=== PATIENT | male | born 1980 | race Caucasian/White ===

== ENCOUNTER 2021-07-29 09:06 | Emergency (ER) | payer OTHER, SELFPAY ==
[2021-07-29] VITALS (10 sets, daily range): BP systolic 127–141; BP diastolic 78–85; PULSE 77–98; RESP 18; TEMP 36.6; O2SAT 98–100; BMI 25.0
--- NOTE | 2021-07-29 09:21 | PC.NURSE ---
States that when he vomited he first threw up the soup he had just eaten and it was followed by a moderate amount of bright red blood
[2021-07-29 09:45] LABS: Add Manual Diff / Slide Review NO; Basophils Absolute Auto 100 /uL (0-100); Basophils Percent Auto 0.8 % (0-2); Eosinophils Absolute Auto 200 /uL (0-450); Eosinophils Percent Auto 2.6 % (2-4); Hematocrit 44.9 % (41-53); Hemoglobin 15.4 g/dL (13.5-17.5); Lymphocytes Absolute Auto 1900 /uL (1100-4500); Lymphocytes Percent Auto 31.2 % (25-40); Mean Corpuscular HGB Conc 34.3 % (30-36); Mean Corpuscular Hemoglobin 30.8 PG (26-34); Mean Corpuscular Volume 89.7 fL (80-100); Monocytes Absolute Auto 600 /uL (0-900); Monocytes Percent Auto 9.9 % (3-14); Neutrophils Absolute Auto 3500 /uL (1500-7000); Neutrophils Percent Auto 55.5 % (50-75); Platelet Count 214 X10^3/uL (150-400); Red Cell Distribution Width 13.3 % (11.6-14.8); White Blood Cell Count 6.3 X10^3/uL (4.5-11.0)
[2021-07-29 09:55] LABS: Alanine Aminotransferase 28 IU/L (<50); Albumin 4.5 g/dL (3.5-5.0); Albumin Globulin Ratio 1.4 (1.0-2.8); Alkaline Phosphatase 76 U/L (38-126); Aspartate Aminotransferase 30 IU/L (17-59); BUN Creatinine Ratio 20.2 (6-22); Bilirubin Total 0.4 mg/dL (0.2-1.3); Blood Urea Nitrogen 18 mg/dL (9-20); Calcium 9.2 mg/dL (8.4-10.2); Carbon Dioxide 28 mmol/L (22-32); Chloride 106 mmol/L (98-107); Estimated Glomerular Filt Rate > 60 mL/min (>60); Globulin 3.2 g/dL (1.7-4.1); Glucose 107 mg/dL (70-100); HEMOLYSIS < 15 (0-50); Potassium 4.6 mmol/L (3.4-5.1); Sodium 140 mmol/L (137-145); Total Protein 7.7 g/dL (6.3-8.2)
--- NOTE | 2021-07-29 10:25 | ED.GIBLEED ---
HPI - GI Bleed General Chief complaint: GI Bleed Stated complaint: Vomiting blood Time Seen by Provider: 07/29/21 09:58 Source: patient Mode of arrival: Ambulatory History of Present Illness HPI Narrative: 41-year-old gentleman with no significant medical history reports that he woke up this morning had some soup for breakfast that ?did not sit well? followed by some emesis the 1st of which was the soupy had consumed and then he describes fresh blood in with the emesis. He describes no black or coffee-ground findings. He has not had any black stools recently he has never had bleeding from his stomach before. He states that he is somewhat dizzy right now however he is not orthostatic. When questioned regarding his alcohol use he states that he has usually around 3 beers a day and occasionally more with more being last night. He says that he does not have any difficulty if he does not have any alcohol and he is successfully had periods of no drinking in the past. He states that he has had chronic diarrhea since moving to the area 7 years agoand attributes this to something in the water is typically clears when he is out of town. He describes no chest pain, palpitations, headache he has no abdominal pain. Related Data Previous Rx's Medication Instructions Recorded omeprazole 40 mg capsule,delayed 40 mg PO DAILY #14 cap 07/29/21 release Allergies Allergy/AdvReac Type Severity Reaction Status Date / Time No Known Drug Allergies Allergy Verified 07/29/21 10:48 Review of Systems Review of Systems Narrative: Remainder of complete review of systems is otherwise unremarkable except for that included in the HPI. Patient History Social History Smoking Status: Current every day smoker Smoking Status: Current every day smoker alcohol intake frequency: 3 or more drinks per day Alcohol type: beer Substance Use Type: does not use Exam Initial Vital Signs Initial Vital Signs: Vital Signs Temperature 98 F 07/29/21 09:15 Pulse Rate 98 H 07/29/21 09:15 Respiratory Rate 18 07/29/21 09:15 Blood Pressure 132/78 07/29/21 09:15 Pulse Oximetry 98 07/29/21 09:15 General: Healthy appearing, in no acute distress. Able to give a complete and coherent history. Well-nourished well-developed HEENT: Moist mucous membranes, normal sclera with reactive pupils, Neck: No JVD, supple Respiratory: Lungs are clear to auscultation, no wheezing no rales no rhonchi. Full and symmetrical air movement Cardiac: Regular rate and rhythm no murmurs no bruits Abdomen: Soft, nontender, good bowel tones, no flank pain Skin: Warm and dry, no rashes Neurologic: Grossly neurologically intact with no obvious asymmetries or abnormalities Extremities: No trauma, well perfused Psych: Cooperative, appropriate insight and affect Course Orders Ordered: ED Orders 07/29/21 09:40 Complete Blood Count AUTO DIFF Stat Comprehensive Metabolic Panel Stat Discontinued Medications Sodium Chloride (Normal Saline 0.9%) 1,000 mls @ 1,000 mls/hr IV BOLUS ONE Stop: 07/29/21 11:35 Last Admin: 07/29/21 10:40 Dose: 1,000 mls/hr Documented by: RAUL Ondansetron HCl (Ondansetron 4 Mg/2 Ml Inj) 4 mg IV NOW ONE Stop: 07/29/21 10:37 Last Admin: 07/29/21 10:40 Dose: 4 mg Documented by: RAUL Pantoprazole Sodium (Pantoprazole 40 Mg Vial) 40 mg IV NOW ONE Stop: 07/29/21 11:09 Last Admin: 07/29/21 11:24 Dose: 40 mg Documented by: RAUL Vital Signs Vital signs: Vital Signs - 8 hr 07/29/21 09:15 Temperature 98 F Pulse Rate 98 H Respiratory Rate 18 Blood Pressure 132/78 Pulse Oximetry 98 MDM - GI Bleed Lab Data Result diagrams: 07/29/21 09:40 07/29/21 09:40 Labs: Lab Results 07/29/21 07/29/21 Range/Units 09:40 09:40 WBC 6.3 (4.5-11.0) X10^3/uL RBC 5.00 (4.5-5.9) X10^6/uL Hgb 15.4 (13.5-17.5) g/dL Hct 44.9 (41-53) % MCV 89.7 (80-100) fL MCH 30.8 (26-34) PG MCHC 34.3 (30-36) % RDW 13.3 (11.6-14.8) % Plt Count 214 (150-400) X10^3/uL Neut % (Auto) 55.5 (50-75) % Lymph % (Auto) 31.2 (25-40) % [place] % (Auto) 9.9 (3-14) % Eos % (Auto) 2.6 (2-4) % Baso % (Auto) 0.8 (0-2) % Neut # (Auto) 3500 (7710-5989) /uL Lymph # (Auto) 1900 (5226-2658) /uL [place] # (Auto) 600 (0-900) /uL Eos # (Auto) 200 (0-450) /uL Baso # (Auto) 100 (0-100) /uL Sodium 140 (137-145) mmol/L Potassium 4.6 (3.4-5.1) mmol/L Chloride 106 (98-107) mmol/L Carbon Dioxide 28 (22-32) mmol/L BUN 18 (9-20) mg/dL Creatinine 0.89 (0.66-1.25) mg/dL Estimated GFR > 60 (>60) mL/min BUN/Creatinine Ratio 20.2 (6-22) Glucose 107 H (70-100) mg/dL Calcium 9.2 (8.4-10.2) mg/dL Total Bilirubin 0.4 (0.2-1.3) mg/dL AST 30 (17-59) IU/L ALT 28 (<50) IU/L Alkaline Phosphatase 76 (38-126) U/L Total Protein 7.7 (6.3-8.2) g/dL Albumin 4.5 (3.5-5.0) g/dL Globulin 3.2 (1.7-4.1) g/dL Albumin/Globulin Ratio 1.4 (1.0-2.8) MDM Narrative Medical decision making narrative: 41-year-old gentleman with an episode of vomiting this morning with what he describes as bright red blood included in the emesis is after some drinking last night. He is not orthostatic, has no significant abdominal pain on clinical exam, lab work is unremarkable. Will give him some fluid, Zofran and observed for the time being. I suspect that this is more adverse effects of last night alcohol intake with possible mild alcoholic gastritis rather than an acute upper GI bleed. Possibility of Boerhaave syndrome is entertained given the emesis followed by bleeding however he does not describe significant retching nor describe any chest or mediastinal pain at this time 1150am on re-evaluation, he has no abdominal pain, no nausea he is getting hungry he is not orthostatic he has had no additional vomiting or diarrhea. Most likely explanation at this time is nausea and vomiting with a small superficial blood vessel rupture causing the bright red blood. We did talk about the possibility of alcoholic gastritis and I did recommend holding alcohol for 1-2 months dose to see how his body responds. Will also ask him to complete a 2 week course of omeprazole. At this time, I do not believe he has any ongoing bleeding, I think that his chance of variceal bleeding or Boerhaave syndrome is minimal. Has any additional signs or symptoms of acute blood loss he does need to return to the emergency department and he clearly understands this. At this time he is safe for home discharge Discharge Plan Departure Patient Disposition: Home Clinical Impression: Upper gastrointestinal hemorrhage Vomiting Qualifiers: Vomiting type: unspecified Nausea presence: with nausea Qualified Code(s): R11.2 - Nausea with vomiting, unspecified Instructions: DI for Vomiting -- Adult Activity Restrictions/Additional Instructions: Thank you for coming in today With your clinical exam and the blood work that was done, I am not seeing any evidence of continued severe bleeding from your stomach. I am wondering if you were bit nauseated after drinking last night and with the vomiting broke a small blood vessel that caused the acute bleeding that you were seeing. If that is the case, our bodies often are able to fix this without any additional issues. At this time, you have no other signs of ongoing or life-threatening bleeding. I am going to suggest that you complete a 14 day course of omeprazole, a stomach acid ed medicine. I am also going to suggest that you try and avoid alcohol for 1-2 months. Alcohol can cause quite a bit of irritation to the lining of your stomach and can contribute to bleeding from your stomach. If you have recurrent bleeding, you are dizzy when you are standing up, you are noticing black stools/diarrhea you do need to return to the emergency department for additional evaluation Prescriptions: New omeprazole 40 mg capsule,delayed release(DR/EC) 40 mg PO DAILY Qty: 14 0RF Referrals: Byron Randolph DO [Primary Care Provider] -
[2021-07-29] MEDS: ONDANSETRON 4 MG/2 ML INJ IV (10:40)
[2021-07-29] MEDS: SODIUM CHLORIDE 0.9% 1,000 ML 1000 ML IV (10:40)
[2021-07-29] MEDS: PANTOPRAZOLE 40 MG VIAL IV (11:24)
== END 2021-07-29 12:20 | disposition home or self-care (01) ==
PROVIDERS: Emergency Provider Emergency Medicine; PCP Family Medicine
DX: K92.2 Gastrointestinal hemorrhage, unspecified (principal); R11.2 Nausea with vomiting, unspecified; F17.200 Nicotine dependence, unspecified, uncomplicated
CPT/HCPCS: 36415; 80053; 85025; 96361; 96374; 96375; 99284; C9113; J2405